=== PATIENT | female | born 1995 | race Caucasian/White ===

== ENCOUNTER 2017-10-29 02:17 | Day surgery (SDC) | payer OTHER ==
[~2017-10-29] VITALS: Ht 162.6 cm; Wt 66.2 kg
[~2017-10-29 02:17] MED LIST: CYCL10TA29 PO; HYDR-4309 PO; MIRENA IUD IL; NAPR500T75 PO; ONDA4TAB PO; RANI-324 PO
[2017-10-29] MEDS: FAMOTIDINE 20 MG TAB PO ONE ×2 (11:08→11:12)
[2017-10-29] MEDS ORDERED: PROPOFOL EMUL(*) 10MG/ML 20 ML 20 ML ONE (11:24)
[2017-10-29] MEDS ORDERED: DEXAMETHASONE SOD 4 MG/ML VIAL ONE (11:24)
[2017-10-29] MEDS ORDERED: ONDANSETRON 4 MG/2 ML VIAL ONE ×2 (11:24→16:26)
[2017-10-29] MEDS ORDERED: fentaNYL CITR 100 MCG/2 ML AMP ONE ×2 (11:24→15:25)
[2017-10-29] MEDS ORDERED: LIDOCAINE MPF 1% 5 ML VIAL ONE (11:24)
[2017-10-29 11:46] VITALS: BP 131/77
[2017-10-29] MEDS ORDERED: ceFAZolin(*) 1 GM VIAL 1 GM in NS(*) 0.9% 100 ML ADDVANT BAG 100 ML IV ONE (12:00)
[2017-10-29] MEDS ORDERED: LIDOCAINE/SOD BICARB 8.4% SYR ID ONE (12:00)
[2017-10-29] MEDS ORDERED: NORMOSOL R SOLN(*) 1000 ML BAG 1,000 ML IV PRN (12:00)
[2017-10-29] MEDS ORDERED: MIDAZOLAM 2 MG/2 ML VIAL IVP ONE (12:00)
[2017-10-29] MEDS ORDERED: HYDROGEN PEROXID 3% 473 ML BTL TP ONE (13:00)
[2017-10-29] MEDS ORDERED: ROPIVACAINE 0.2% 20 ML VIAL ONE ×2 (13:45→13:50)
[2017-10-29] MEDS ORDERED: ROPIVACAINE 0.5% 20 ML VIAL ONE (13:50)
[2017-10-29] MEDS ORDERED: KETAMINE HCL 200 MG/20 ML MDV ONE (14:15)
[2017-10-29] MEDS ORDERED: NS 0.9% IRRIGATION 1000ML PLCT IR ONE (14:49)
[2017-10-29] MEDS ORDERED: KETOROLAC 30 MG/ML VIAL ONE (16:08)
[2017-10-29 16:43] VITALS: BP 108/65
[2017-10-29 16:58] VITALS: BP 102/69
[2017-10-29 17:31] VITALS: BP 95/68
[2017-10-29 17:34] VITALS: BP 103/77
[2017-10-29 17:38] VITALS: BP 103/52
--- NOTE | 2017-10-30 07:19 | OPERATIVE REPORT 1 ---
EVENT DATE: October 29, 2017 SURGEON: Mehdi Stallings MD MOLD UNLOADER: ZAINAB Cotter ANESTHESIOLOGIST: Blayne Saucedo MD ANESTHESIA: General. PREOPERATIVE DIAGNOSIS Significant hallux valgus deformity with hypermobile first ray on the right side. POSTOPERATIVE DIAGNOSIS Significant hallux valgus deformity with hypermobile first ray on the right side. PROCEDURE PERFORMED Lapidus procedure with a modified Cabrera bunionectomy. ESTIMATED BLOOD LOSS Minimal. FLUIDS Minimal. DESCRIPTION OF PROCEDURE Patient was brought to the operating room, placed in the supine position, bump placed under her right hip. The right lower extremity was prepped and draped in normal sterile fashion using Prevail. Sterile stockinette, sterile U drape and sterile extremity drape was placed over the lower extremity. Stockinette was then sized, rolled above the knee and held with Coban. Esmarch was then used to exsanguinate the lower extremity and tourniquet turned up to 300 mmHg. Incision was made directly over the first TMT joint. Skin was incised with 15 blade down to subcutaneous tissue. Subcutaneous tissue was bluntly dissected down to the first TMT joint. A sharp knife was placed into the joint. I was able to open the joint up and remove the capsule on both sides. Blunt dissection was done into the intermetatarsal area between the first and second metatarsals. Two Homans were placed across the base of the first metatarsal. I then took a wedge out of the medial cuneiform of about 5-10 degrees using an oscillating saw. Once I removed that wedge out, I then used a curette and an osteotome to remove the cartilage on the surface of the end of the base of the fifth metatarsal. At this point, I brought fluoroscopy in and found that the angle that it was brought over lined up perfectly with the metatarsal with the sesamoids, and realigned that first metatarsal. I then pinned it with a percutaneous K wire, again made sure on AP and lateral it had good alignment. I then used a angi and a 3.5/2.[address] a 3.5 screw across the from distal to proximal part of the first TMT joint. Once I had that done, I then used a screw and the same lag technique going from the medial side to the second metatarsal and for a derotational screw, I was able to bring the metatarsal over without any difficulty. I had excellent alignment of both the first and the joint. I then bone grafted the top of the TMT joint and then intermetatarsal area as well. At this time, I turned my attention to the bunionectomy. I then made an incision over the medial eminence of the first TMT joint. Skin was incised with 15 blade down to subcutaneous tissue. Subcutaneous tissue was bluntly dissected down to the retinaculum. I then made a reverse 7 incision over the retinaculum over the first TMT joint. I was able to reflect this back, placed two Hohmanns across the distal end of the first metatarsal, using an oscillating saw just to remove the medial eminence, very minimal portion of it. I made a small incision over the lateral aspect of the first MTP joint. Blunt dissection down to find the intermetatarsal ligament, which was then incised. At this point, I brought fluoroscopy in and found to have excellent alignment of the first metatarsal over the sesamoids. I then used a 3.0 FiberWire to repair the retinaculum over the medial eminence, derotating the toe and shortening it. Once we had that in good position, I then finished suturing the retinaculum, both on the superior aspect and the distal end, closed using 3-0 Monocryl, 4-0 Monocryl, Adaptic, 4x4, big bulky Vergara dressing. Patient went to recovery. No complications. KAJAL
== END 2017-10-29 16:44 | disposition home or self-care (01) ==
LOC: OR 02:17
PROVIDERS: ATTEND Orthopaedic Surgery
DX: M20.11 Hallux valgus (acquired), right foot (principal)
CPT/HCPCS: 28750; 76000; 81025; C1713; J0690; J1100; J1885; J2001; J2250; J2405; J2704; J2795; J3010; J3490; J7050

== ENCOUNTER 2018-02-08 16:10 | Outpatient (RCR) | payer OTHER ==
--- NOTE | 2018-01-29 14:09 | PT INITIAL EVALUATION ---
MEDICAL DIAGNOSIS: 3 months s/p Lapidus procedure right foot TREATMENT DIAGNOSIS: same, altered gait mechanics, reduced PROM-AROM DATE OF ONSET: 10/29/17 SUBJECTIVE: Francesco Garcia presents to physical therapy 3 months s/p Lapidus procedure on her right foot. She reports that she initial wore a cast for 2 months along with NWB then transitioned to walking boot WBAT X 1 month and finally has transitioned to normal shoe wear with WBAT a few days ago. She reports that she currently does not have anymore pain. She reports that she has more stiffness than anything. She reports that her stiffness is worse in the am and gets better as the days progress. She reports that her stiffness is better with constant movement and worse with being still or no movement. She reports that she feels like she wants to improve walking, reduce stiffness, and be able to move her foot the way it was designed. She reports that she feels like she has a limp with walking since she feels like she cannot push off with her toes because they are so stiff. Pain location is medial dorsal side of R foot, 1-2nd digits, along dorsal foot and described as stiffness. Pain scale is 0 on a ten point pain scale. REHAB PROBLEM LIST: Decreased ROM Decreased Strength Decreased Endurance Decreased Balance Decreased Function Decreased Gait PREVIOUS MEDICAL HISTORY: See EMR OCCUPATION: donor floor technician at [employer] OBJECTIVE: ROM: 1st, 2nd, 3rd, 4th, and 5th phalanges: severely decreased PROM-AROM into flexion and moderately decreased into extension. R ankle inversion, eversion, DF, and PF: equal to L side Strength: Will test strength once range of motion is achieved PROM-AAROM. Palpation: TTP: over 2nd metatarsal and 1st and 2nd phalanges. Sensation: Intact B L2-S1 Special Tests: Severely hypomobile accessory motion of phalanges, MTP's, cuneiforms, navicular, talocruel, and cuboid. Moderately hypomobile accessory motion of calcaneus Mobility: Independent Gait: She demonstrated decreased L step length, normal step clearance, normal initial contact or heel strike, decreased R toe off/push off, and decreased velocity. Balance: Will test in the future ASSESSMENT: Francesco will benefit from skilled physical therapy to address the listed impairments to improve function and return to prior level of function. Short Term Goals 4 weeks: Pt will improve PROM-AROM of R 1st-5th phalanges into flexion and extension with abolished pain to improve function and QOL. 4 weeks: Pt will demonstrate improvements with gait mechanics and return to prior level of function to improve function and QOL. 4 weeks: Pt will demonstrate improved accessory mobility of her incisions to improve function and QOL. 4 weeks: Pt will improve R LE strength from baseline to 4+/5 or great to improve function and QOL. Patient's Goals Return to prior level of function with walking and with movement without any stiffness. PLAN: Patient to be seen for Manual Therapy/STM/MET Strengthening/condition Range of Motion Work Hardening/Cond Stretching Neuromuscular Re-ed Closed Chain Program Gait Trg/Balance Trg Home Exercise Program Therapeutic Activities 2x/Week for 4 Weeks If you have any questions, comments, or concerns about this report or plan, please contact me at . Thank you, Yves Cortes, PT, DPT MTDD
[~2018-02-08 16:10] MED LIST changes: -RANI-324 PO; +RANI-366 PO
--- NOTE | 2018-03-14 15:42 | PT PLAN OF CARE ---
Physician: Mehdi Stallings MD Patient is being seen: 1-2x/week Therapist: Yves Cortes, PT, DPT Medical Diagnosis: 3 months s/p Lapidus procedure right foot Treatment Diagnosis: same, altered gait mechanics, reduced PROM-AROM Date of Onset: 10/29/17 Date of Initial Evaluation: 01/28/18 Date patient was last seen: 02/08/18 Number of treatments: 4 Number of cancellations/No shows: 3 INTERVENTIONS: Manual Therapy/STM/MET Strengthening/condition Range of Motion Work Hardening/Cond Stretching Neuromuscular Re-ed Closed Chain Program Gait Trg/Balance Trg Home Exercise Program Therapeutic Activities GOALS: 4 weeks: Pt will improve PROM-AROM of R 1st-5th phalanges into flexion and extension with abolished pain to improve function and QOL. 4 weeks: Pt will demonstrate improvements with gait mechanics and return to prior level of function to improve function and QOL. 4 weeks: Pt will demonstrate improved accessory mobility of her incisions to improve function and QOL. 4 weeks: Pt will improve R LE strength from baseline to 4+/5 or great to improve function and QOL. PATIENT'S GOAL: Return to prior level of function with walking and with movement without any stiffness. Status of Patient's Goals: Progressing Patient Compliance: Fair Prognosis: Excellent Reasons for continuing therapy: This is a discharge note for [facility]. On our last contact, on 02/08/18, she demonstrated the following: She reports that she feels like her toes are moving more and feels less soreness along with improved walking. She demonstrates improvements with 1-5th digits/phalanges flexion and extension and improved gait mechanics. Furthermore, she demonstrates improvements within accessory mobility of her foot and ankle joints. However, on our last contact, she demonstrated mild antalgic gait that was improving with PT as the sessions progressed. She has cancelled her last 3 sessions and has not rescheduled. As a result, she will be discharged from PT. ROM: 1st, 2nd, 3rd, 4th, and 5th phalanges: minimal decreased PROM-AROM into flexion and minimal decreased into extension. R ankle inversion, eversion, DF, and PF: equal to L side Strength: Will test strength once range of motion is achieved PROM-AAROM. Palpation: TTP: over 2nd metatarsal and 1st and 2nd phalanges. Special Tests: Moderately hypomobile accessory motion of phalanges, MTP's, cuneiforms, navicular, talocruel, and cuboid. Minimal hypomobile accessory motion of calcareous Mobility: Independent If you have any questions, please contact me at [phone]. Thank you, Yves Cortes, PT, DPT GREGORIAD
== END 2018-02-08 18:00 | disposition home or self-care (01) ==
LOC: PT 16:10
PROVIDERS: ATTEND Orthopaedic Surgery
DX: M25.674 Stiffness of right foot, not elsewhere classified (principal); R26.89 Other abnormalities of gait and mobility
CPT/HCPCS: 97161

== ENCOUNTER → 2018-04-23 | Outpatient (CLI) | payer OTHER ==
[~2018-04-23] MED LIST changes: +BARIUM SULFATE 176 GM BTL PO ONE; +BARIUM SULFATE 340 GM POWD ONE; +PANT40TA65 PO
--- NOTE | 2018-04-23 17:05 | RADIOLOGY IMAGING REPORT ---
FACILITY: [facility] - [place] PATIENT NAME: Francesco Garcia : 1995 MR: [id number] V: [id number] EXAM DATE: ORDERING PHYSICIAN: ARINA SARMIENTO TECHNOLOGIST: [place] [facility] [place] Francesco Garcia : 1995 Visit/Account:[id number] Date of Sevice: 04/23/2018 Exam type: UPPER GI SERIES W/O AIR History: Reflux, esophagitis Comparison: None. Findings: Double contrast esophagram was performed with thick and thin barium and air contrast. There is a sma ll hiatal hernia present with minimal narrowing at the lower esophageal sphincter. A moderate amount of gastroesophageal reflux was observed. No mucosal erosions are identified. Stomach duodenal bulb and duodenal C-loop appear unremarkable. The fluoroscopy dose area product was 384.43 micro-Vences pe r meter squared IMPRESSION: 1. Small hiatal hernia with a moderate amount of gastroesophageal reflux and minimal narrowing at th e lower esophageal sphincter. No mucosal erosions identified Report Dictated By: Terri Morse MD at 04/23/2018 4:53 PM Report E-Signed By: Terri Morse MD at 04/23/2018 5:01 PM WSN:[id number]
== END ==
LOC: RAD 01:32
PROVIDERS: ATTEND Surgery
DX: K44.9 Diaphragmatic hernia without obstruction or gangrene (principal); K21.9 Gastro-esophageal reflux disease without esophagitis
CPT/HCPCS: 74240

== ENCOUNTER 2018-05-01 00:10 | Day surgery (SDC) | payer OTHER ==
[~2018-05-01] VITALS: Ht 162.6 cm; Wt 65.3 kg
[~2018-05-01 00:10] MED LIST changes: -BARIUM SULFATE 176 GM BTL PO ONE; -BARIUM SULFATE 340 GM POWD ONE
[2018-05-01 09:00] VITALS: BP 114/72
[2018-05-01] MEDS ORDERED: NS(*) 0.9% 10 ML VIAL 0 ML ONE (10:10)
[2018-05-01] MEDS ORDERED: GELATIN SPONGE 12-7MM ONE (10:10)
[2018-05-01] MEDS ORDERED: THROMBIN TOP SOLN 5000INTLU VL ONE (10:10)
[2018-05-01] MEDS ORDERED: ROPIVACAINE 0.2% 20 ML VIAL ONE ×2 (10:10→13:36)
[2018-05-01] MEDS ORDERED: HYDROGEN PEROXID 3% 473 ML BTL TP ONE (10:10)
[2018-05-01] MEDS ORDERED: ROPIVACAINE 0.2% 400 MG/200ML 250 ML CONINFUS ONE (10:30)
[2018-05-01] MEDS ORDERED: NORMOSOL R SOLN(*) 1000 ML BAG 1,000 ML IV PRN (10:30)
[2018-05-01] MEDS ORDERED: ceFAZolin(*) 1 GM VIAL 1 GM in NS(*) 0.9% 100 ML ADDVANT BAG 100 ML IVPB ONE (10:30)
[2018-05-01] MEDS ORDERED: LIDOCAINE/SOD BICARB 8.4% SYR ID ONE (10:30)
[2018-05-01] MEDS ORDERED: MIDAZOLAM 2 MG/2 ML VIAL IVP PRN (10:30)
[2018-05-01] MEDS ORDERED: fentaNYL CITR 100 MCG/2 ML AMP ONE (11:42)
[2018-05-01] MEDS ORDERED: PROPOFOL EMUL(*) 10MG/ML 20 ML 40 ML ONE (13:35)
[2018-05-01] MEDS ORDERED: NEOSTIG METHYLSUL 10MG/10ML VL ONE (13:35)
[2018-05-01] MEDS ORDERED: DEXAMETHASONE SOD PHOS 10MG/ML ONE (13:35)
[2018-05-01] MEDS ORDERED: ONDANSETRON 4 MG/2 ML VIAL ONE (13:36)
[2018-05-01] MEDS ORDERED: LIDOCAINE 1%MDV(*)200 MG/20 ML 1 ML ONE (13:36)
[2018-05-01] MEDS ORDERED: KETOROLAC 30 MG/ML VIAL ONE (14:19)
[2018-05-01 14:58] VITALS: BP 106/70
[2018-05-01 15:15] VITALS: BP 110/70
[2018-05-01 15:18] VITALS: BP 106/71
[2018-05-01 15:19] VITALS: BP 107/71
--- NOTE | 2018-05-01 15:43 | OPERATIVE REPORT 1 ---
EVENT DATE: May 01, 2018 SURGEON: Mehdi Stallings MD ANESTHESIOLOGIST: Kiko Painting MD ANESTHESIA: soaping machine back tender: CATA Melo PREOPERATIVE DIAGNOSES 1. Left hallux valgus deformity. 2. Hypermobile first ray. POSTOPERATIVE DIAGNOSES 1. Left hallux valgus deformity. 2. Hypermobile first ray. PROCEDURE PERFORMED Lapidus procedure with a modified Cabrera bunionectomy. ESTIMATED BLOOD LOSS Minimal. TOURNIQUET TIME Less than an hour. DESCRIPTION OF OPERATION Patient was brought to the operating room and placed in the supine position. A bump was placed under her left hip. The left lower extremity was prepped and draped in the normal sterile fashion using Prevail, sterile stockinette, and sterile U-drape. A sterile shower drape was placed over the lower extremity. The stockinette was incised above the knee and held with a Coban. Esmarch was then used to exsanguinate the lower extremity. It was turned up to 300 mmHg. First incision made directly over the first TMT joint, skin incised with a 15 blade down to subcutaneous tissue. The subcutaneous tissue was bluntly dissected down to the extensor tendons. They were pushed both medially and laterally. Subperiosteal dissection was done at the base of the first TMT joint. Two Hohmanns were placed around the base of the first TMT joint. An oscillating saw was then used to transect a medial closing wedge out of the medial cuneiform. Once that was done, I was able to then get into the joints, place a lamina glass curvature gauger, removed the cartilage on the distal part of the joint, and use a 2.0 drill bit to perforate the subchondral bone on that side. I also perforated the Lisfranc joint at the base of the second, debriding the ligament and placing multiple drill holes into that area and on the medial aspect of the base of the first metatarsal. Once that was completely debrided, I then was able to bring the first metatarsal into correct alignment, put a two-point reduction clamp across it, checked under fluoroscopy AP and lateral, and found to have excellent alignment. I then opened the joint again and placed DBX into the joint for bone grafting. Once that was bone grafted, I then realigned the base of the first TMT joint with a two-point reduction clamp, brought fluoroscopy in, and made sure it was in excellent alignment, which it was. I then placed a screw from distal to proximal, doing a lag technique, 3.5, 2.5 drill, and a 3.5 screw was then placed. I then did a derotational screw going from medial to lateral, grabbing the second metatarsal through the first, holding it in place for derotation. I again checked on fluoroscopy and had excellent alignment of the screws in all planes. At this point, I turned my attention to the first metatarsophalangeal joint. I made an incision over the medial aspect of the MTP joint, skin incised, and taken down to subcutaneous tissue. The subcutaneous tissue was bluntly dissected down to the retinaculum. A reverse seven retinaculum incision was made. I was able to get down to the first MTP joint. There was very little exostoses there, but I did place two Hohmanns across it and transected a small amount of the medial eminence. Once that was done, I then perforated the lateral side of the first MTP joint. A small poke hole was made in the skin, bluntly dissected down to the intermetatarsal ligament which was transected, and the capsulotomy was then done, able to bring the first metatarsal head over. I then repaired the reverse seven retinaculum using a 3-0 FiberWire. Once that was done, I was able to take fluoroscopy final x-rays and make sure the alignment of the joint was appropriate, which it was. It was closed using 3-0 Monocryl and 4-0 Monocryl with Steri-Strips, Adaptic, 4 x 4's, and a big, bulky gauze dressing. The patient went to recovery. No complications. KAJAL
== END 2018-05-01 14:50 | disposition home or self-care (01) ==
LOC: OR 00:10
PROVIDERS: ATTEND Orthopaedic Surgery
DX: M20.12 Hallux valgus (acquired), left foot (principal)
CPT/HCPCS: 28750; 76000; 76942; 81025; C1713; J0690; J1100; J2001; J2405; J2704; J2795; J3010; J7050; J2710

== ENCOUNTER → 2018-05-11 | Outpatient (REF) | payer OTHER ==
[2018-05-11 13:31] LABS: PLATELET COUNT, AUTOMATED 284 K/uL (150-450)
== END ==
PROVIDERS: ATTEND Nurse Practitioner Family
DX: T81.4XXA Infection following a procedure, initial encounter (principal)
CPT/HCPCS: 82040; 82247; 82310; 82374; 82435; 82565; 82947; 84075; 84132; 84155; 84295; 84450; 84460; 84520; 85025; 85651